=== PATIENT | female | born 1995 | race Caucasian/White ===

== ENCOUNTER 2023-12-06 09:38 | Emergency (ER) | payer SELFPAY ==
[~2023-12-06] VITALS: Ht 165.1 cm; Wt 95.3 kg
[~2023-12-06 09:38] MED LIST: AMOX TR-K CLV1 EAC2 PO
[2023-12-06 09:45] VITALS: PULSE 63; RESP 18; TEMP 98.6; O2SAT 100
== END 2023-12-06 10:00 | disposition home or self-care (01) ==
LOC: ER 09:47
DX: Z48.02 Encounter for removal of sutures (principal)
CPT/HCPCS: 99282; S0630